=== PATIENT | male | born 1980 | race Two or more races ===

== ENCOUNTER 2020-01-22 18:17 | Emergency (ER) | payer SELFPAY ==
[~2020-01-22] VITALS: Ht 180.3 cm; Wt 97.5 kg
[2020-01-22 20:33] VITALS: BP 160/99
== END 2020-01-22 20:39 | disposition home or self-care (01) ==
LOC: ER 18:17
DX: S01.411A Laceration without foreign body of right cheek and temporomandibular area, initial encounter (principal); S01.451A Open bite of right cheek and temporomandibular area, initial encounter; W54.0XXA Bitten by dog, initial encounter; Y93.89 Activity, other specified; Y92.89 Other specified places as the place of occurrence of the external cause; Y99.8 Other external cause status